=== PATIENT | male | born 1970 | race Caucasian/White ===

== ENCOUNTER 2017-03-13 13:23 | Inpatient (IN) | payer OTHER ==
[~2017-03-13] VITALS: Ht 167.6 cm; Wt 140.6 kg
[~2017-03-13 13:23] MED LIST: LISI5TAB18 PO
[2017-03-13 13:30] VITALS: BP 125/93
--- NOTE | 2017-03-13 14:40 | NUR ---
PATIENT AMBULATED TO ER BED 3.
--- NOTE | 2017-03-13 14:45 | NUR ---
PATIENT PRESENTS TO ED WITH C/O SEVERE HEADACHES IN THE MORNING AFTER A FULL NIGHT OF SLEEP X LAST 3 NIGHTS . PT STATES . DENIES N/V/D; SKIN IS PINK/WARM/DRY; AAOX4 WITH EVEN AND STEADY GAIT; LUNGS CLEAR BL; HR EVEN AND REGULAR; PT DENIES ANY FEVER, CP, PATIENT STATES PAIN OF 0/10 AT THIS TIME; VSS; PATIENT POSITIONED FOR COMFORT; HOB ELEVATED; BEDRAILS UP X2; BED DOWN. ER MD MADE AWARE OF PT STATUS.
--- NOTE | 2017-03-13 14:53 | NUR ---
PATIENT BEING EVALUATED BY DR. MATOS.
[2017-03-13 14:59] LABS: BASOPHILS # (AUTO) 0.2 K/uL (0.00-0.22); EOSINOPHILS # (AUTO) 0.2 K/uL (0-0.4); WHITE BLOOD COUNT (AUTO) 9.8 K/uL (4.8-10.8)
--- NOTE | 2017-03-13 15:00 | NUR ---
X - RAY AT BEDSIDE
[2017-03-13 15:01] LABS: BASOPHILS % (AUTO) 2.2 % (0.0-2.0); EOSINOPHILS % (AUTO) 2.1 % (0.0-4.0); HEMATOCRIT 44.8 % (36-52); HEMOGLOBIN 14.8 g/dL (12.0-18.0); LYMPHOCYTES # (AUTO) 1.4 K/uL (2.0-11.5); LYMPHOCYTES % (AUTO) 14.6 % (20.5-51.1); MEAN CORPUSCULAR HEMOGLOBIN 32 pg (27-31); MEAN CORPUSCULAR HGB CONC 33 g/dL (33-37); MEAN CORPUSCULAR VOLUME 97 fL (80-94); MONOCYTES # (AUTO) 0.8 K/uL (0.8-1.0); MONOCYTES % (AUTO) 7.8 % (1.7-9.3); NEUTROPHILS # (AUTO) 7.2 K/uL (1.8-7.7); NEUTROPHILS % (AUTO) 73.3 % (42.2-75.2); PLATELET COUNT (AUTO) 233 K/uL (140-450); RED BLOOD CELL COUNT(AUTO) 4.65 MIL/uL (4.20-6.10); RED CELL DISTRIBUTION WIDTH 13.1 % (11.6-13.7)
[2017-03-13 15:11] LABS: ANION GAP 7.8 (8-16); CALCIUM 8.3 mg/dL (8.5-10.1); CARBON DIOXIDE 32.1 mmol/L (21-32); CREATININE 0.6 mg/dL (0.7-1.3); POTASSIUM 3.9 mmol/L (3.5-5.1)
[2017-03-13 15:18] LABS: AMYLASE 27 U/L (25-115); LIPASE 124 U/L (73-393); TOTAL BILIRUBIN 0.3 mg/dL (0.0-1.0); TOTAL PROTEIN, SERUM 7.3 g/dL (6.4-8.2)
--- NOTE | 2017-03-13 15:19 | NUR ---
ULTRA SOUND AT BEDSIDE
[2017-03-13 15:26] LABS: INR 1.1 (0.8-1.2); PARTIAL THROMBOPLASTIN TIME 25.6 secs (22-35.6); PROTHROMBIN TIME 10.7 secs (10.8-13.4)
--- NOTE | 2017-03-13 15:56 | NUR ---
ambulatory to and from restroom with steady gait---pt back to [facility] resting with ou closed, snoring denies paredes at this time
[2017-03-13] MEDS ORDERED: LEVOFLOXACIN 750 MG/D5W PREMIX 150 ML IV ONE ×2 (17:00→17:15)
[2017-03-13] MEDS ORDERED: NACL 0.9% 1,000 ML IV ONE ×2 (17:00→17:15)
[2017-03-13] MEDS ORDERED: LORazepam 2 MG/ML VIAL IVP PRN (17:25)
[2017-03-13] MEDS ORDERED: ONDANSETRON 4 MG/2 ML VIAL IVP PRN (17:25)
[2017-03-13] MEDS ORDERED: FUROSEMIDE 40 MG TAB PO SCH (17:45)
--- NOTE | 2017-03-13 17:51 | NUR ---
TELE UNABLE TO TAKE REPORT AT THIS TIME
--- NOTE | 2017-03-13 17:55 | NUR ---
[facility]IV[facility] TO ROSA ELENA BRAVO
[2017-03-13 17:56] LABS: LACTIC ACID 1.1 mmol/L (0.4-2.0)
[2017-03-13 18:00] VITALS: BP 151/90
--- NOTE | 2017-03-13 18:00 | NUR ---
PATIENT ADMITTED FROM ER DX: PNA. PATIENT IS ALERT AND ORIENTED X4. AMBULATORY TO BED. HAS PRODUCTIVE COUGH. RHONCHI HEARD BILATERALLY OVER LOWER LOBES. DENIES FEELING SOB. DENIES CHEST PAIN. EDEMA NOTED BLE, PATIENT HAS HX VARICOSE VEINS. RIGHT ANKLE SWOLLEN, C/O SLIGHT DISCOMFORT. PATIENT TOLERATING PO DIET, DENIES N/V. IV ON LH #20, PATENT AND INTACT, INFUSING IV ABX BROUGHT FROM ER. PATIENT O2 SATURATION LOW, MD TO BE NOTIFIED. CALL LIGHT WITHIN REACH. SAFETY MEASURES ENSURED. ORIENTED TO HOSPITAL ENVIRONMENT.
[2017-03-13] MEDS ORDERED: LORazepam 1 MG TAB PO PRN (18:30)
--- NOTE | 2017-03-13 18:40 | NUR ---
PATIENT SEEN BY DR. DENIS AT BEDSIDE. MADE AWARE OF RESPIRATORY STATUS, NEW ORDERS FOR O2 2L NC. NEW MEDICATIONS ORDERED FOR INCREASED BP, WILL MEDICATE ORDERED. PATIENT HAS NO S/S OF ACUTE DISTRESS. RESTING IN BED.
[2017-03-13] MEDS ORDERED: FOLIC ACID 1 MG TAB PO SCH (19:00)
[2017-03-13] MEDS ORDERED: THIAMINE 100 MG TAB PO SCH (19:00)
[2017-03-13] MEDS ORDERED: LISINOPRIL 20 MG TAB PO SCH (19:00)
[2017-03-13] MEDS ORDERED: PNEUMOCOCCAL VACCINE 23 MCG/0.5 ML VIAL IMVAC SCH ×2 (19:00)
--- NOTE | 2017-03-13 19:10 | NUR ---
ENDORSED PLAN OF CARE TO NIGHT RN AT PT BEDSIDE IN STABLE CONDITION. NO S/S OF ACUTE DISTRESS NOTED.
--- NOTE | 2017-03-13 19:30 | NUR ---
RECEIVED PLAN OF CARE FROM AM NURSE. PT RESTING IN BED, AOX4, ABLE TO VERBALIZE NEEDS. PT C/O HEADACHE. SEE PAIN ASSESSMENT. WILL MEDICATE ORDERED. 2L O2 NC PLACED AT BEDSIDE, PUT BACK ON, EDUCATED ON THE IMPORTANCE TO KEEP O2 NC ON. PT STATED "I WILL TRY TO KEEP IT ON." WILL CONTINUE TO REINFORCE. BLE EDEMA NOTED. DISCUSSED AND REVIEWED PLAN OF CARE WITH PT. PT VERBALIZED UNDERSTANDING. SAFETY MEASURES ENSURED. CALL LIGHT WITHIN REACH. WILL CONTINUE TO MONITOR.
[2017-03-13 20:00] VITALS: BP 152/96
[2017-03-13] MEDS: ACETAMINOPHEN 325 MG TAB PO PRN (20:35)
--- NOTE | 2017-03-13 20:41 | NUR ---
ADMINISTERED PNA VAC WITH EDUCATION. PT C/O HEADACHE. SEE PAIN ASSESSMENT. ADMINISTERED TYLENOL WITH EDUCATION. PT VERBALIZED UNDERSTANDING, TOLERATED MEDS WELL. SAFETY MEASURES ENSURED. CALL LIGHT WITHIN REACH. WILL CONTINUE TO MONITOR.
[2017-03-14] VITALS: BP 144/102
[2017-03-14] MEDS: ACETAMINOPHEN 325 MG TAB PO PRN ×2 (00:41→14:36)
[2017-03-14 01:50] VITALS: BP 164/105
[2017-03-14] MEDS ORDERED: LISINOPRIL 20 MG TAB PO SCH ×2 (01:50→09:00)
--- NOTE | 2017-03-14 01:50 | NUR ---
PAGED DR COLEY, CIVIL STRUCTURAL ENGINEER FOR DR DENIS, MADE MD AWARE OF PT'S DIAGNOSIS OF PNA, SUBSTANCE ABUSE AND PT'S C/O PERSISTENT, BREAKTHROUGH HEADACHE AND PT'S HIGH BLOOD PRESSURE RANGING FROM 152/96 AND NOW AT 164/105. DISCUSSED THAT THERE IS NO UDS AND THE PT DID NOT HAVE BP MED ORDERED FOR THE NIGHT BUT DOES HAVE LISINOPRIL 20MG PO SCHEDULED IN THE MORNING. MD ORDERED UDS, NORCO 5/325 Q4 PRN FOR PAIN, LISINOPRIL 20MG PO NOW AND THAT IT IS OK TO GIVE SCHEDULED DOSE OF LISINIPRIL IN THE MORNING WELL. ORDERS PENDING, WILL CARRY OUT.
[2017-03-14] MEDS: HYDROcodone/APAP 5/325 MG 1 TAB TAB PO PRN ×3 (02:13→20:17)
--- NOTE | 2017-03-14 02:18 | NUR ---
ADMINISTERED LISINOPRIL 20MG PO NOW ORDERED AND NORCO 5/325 FOR BREAKTHROUGH HEADACHE, SEE PAIN ASSESSMENT. PT VERBALIZED UNDERSTANDING, TOLERATED MED WELL. PT INSTRUCTED TO COLLECT URINE SAMPLE WHENEVER POSSIBLE, PT VERBALIZED UNDERSTANDING. SAFETY MEASURES ENSURED. CALL LIGHT WITHIN REACH.
--- NOTE | 2017-03-14 04:15 | NUR ---
PT SLEEPING. CONDITION STABLE. ALL NEEDS MET. SAFETY MEASURES ENSURED. CALL LIGHT WITHIN REACH. WILL CONTINUE TO MONITOR.
[2017-03-14 05:12] LABS: AMPHETAMINE, URINE NEGATIVE ng/ml (NEG <=1000); BARBITURATE, URINE NEGATIVE ng/ml (NEG <=200); BENZODIAZEPINE, URINE NEGATIVE ng/mL (NEG <=200); CANNABINOID, URINE NEGATIVE ng/mL (NEG <=50); COCAINE, URINE NEGATIVE ng/mL (NEG <=300); OPIATE, URINE NEGATIVE ng/mL (NEG <=2000); PHENCYCLIDINE SCREEN,URINE NEGATIVE ng/mL (NEG <=25)
--- NOTE | 2017-03-14 07:07 | NUR ---
PATIENT HAS BEEN SCREENED AND CATEGORIZED HIGH NUTRITION RISK. PATIENT WILL BE SEEN WITHIN 1-2 DAYS OF ADMISSION. 03/14/17-03/15/17 RENNY BAIRD MS, RDN
--- NOTE | 2017-03-14 07:34 | NUR ---
CONDITION STABLE. ENDORSED PLAN OF CARE TO AM NURSE.
--- NOTE | 2017-03-14 07:34 | NUR ---
RECIVED REPORT FROM NIGHT NURSE, PT IS AAOX4, IV TO LEFT HAND 20G SALINE LOCK, SKIN INTACT, BLE EDEMA, INITIAL ASSESSMENT COMPLETED, REVIEWED PLAN OF CARE WITH PT, PT VERBALIZED UNDERSTANDING, ALL SAFETY PRECAUTIONS MET. CALL LIGHT WITHIN REACH. WILL CONTINUE TO MONITOR.
[2017-03-14 08:00] VITALS: BP 151/99
[2017-03-14] MEDS: ENOXAPARIN 40 MG/0.4 ML SYR SUBQ SCH (08:24)
[2017-03-14] MEDS: FOLIC ACID 1 MG TAB PO SCH (08:24)
[2017-03-14] MEDS: THIAMINE 100 MG TAB PO SCH (08:24)
[2017-03-14] MEDS: LISINOPRIL 20 MG TAB PO SCH (08:24)
--- NOTE | 2017-03-14 08:28 | NUR ---
DUE MEDICATIONS GIVEN. PT TOLERATED WELL. ALL NEEDS MET. WILL CONTINUE TO MONITOR.
--- NOTE | 2017-03-14 10:20 | NUR ---
03/14/17 RD INITIAL ASSESSMENT COMPLETED PLEASE REFER TO NUTRITION ASSESSMENT UNDER CARE ACTIVITY FOR ESTIMATED NUTRITIONAL NEEDS. RD RECOMMENDATIONS: 1. CONTINUE ON CURRENT DIET. 2. RD WILL F/U 5-7 DAYS; LOW RISK. RENNY BAIRD MS, RDN
--- NOTE | 2017-03-14 11:25 | NUR ---
CHECKED IN ON PT, PT CURRENTLY SLEEPING. NO S/S OF DISTRESS NOTED. WILL CONTINUE TO MONITOR.
[2017-03-14] MEDS ORDERED: cloNIDine 0.1 MG TAB PO SCH (14:33)
--- NOTE | 2017-03-14 15:28 | NUR ---
PT CURRENTLY TAKING A SHOWER
[2017-03-14 16:06] VITALS: BP 130/73
--- NOTE | 2017-03-14 18:38 | NUR ---
PT ACCIDENTLY PULLED OUT IV, NEW IV STARTED RIGHT HAND 20G SALINE LOCK, PT TOLERATED WELL. ALL NEEDS MET. WILL CONTINUE TO MONITOR.
--- NOTE | 2017-03-14 19:10 | NUR ---
ENDORSED PLAN OF CARE, PT IN STABLE CONDITION.
--- NOTE | 2017-03-14 19:15 | NUR ---
RECEIVED PT FROM HOMAR BRAVO PT IS AAOX4 AMBULATORY BLE EDEMA +2 HL ON RT HAND PATENT ON 02 2 LTS VIA NC INITIAL ASSESSMENT DONE
[2017-03-14] MEDS: cloNIDine 0.1 MG TAB PO SCH (20:16)
--- NOTE | 2017-03-14 21:18 | NUR ---
AFTER PAIN MEDIC GIVEN PT SLEEPING WELL ON 10 09 LTS VIA NC
[2017-03-15] VITALS: BP 156/100
--- NOTE | 2017-03-15 | NUR ---
PT SLEEPING ON 02 2 LTS VIA NC 96%
[2017-03-15] MEDS: HYDROcodone/APAP 5/325 MG 1 TAB TAB PO PRN ×2 (01:38→08:28)
--- NOTE | 2017-03-15 01:57 | NUR ---
RESTING ON BED NOT SOB NOTED ON 10 09 LTS VIA NC
--- NOTE | 2017-03-15 04:00 | NUR ---
SPONGE BATH GIVEN LINEN CHANGED ON 2 LTS VIA NC
--- NOTE | 2017-03-15 06:30 | NUR ---
PT RESTING ON BED NOT SOB NOTED HL ON RT HAND PATENT
--- NOTE | 2017-03-15 07:15 | NUR ---
RECEIVED REPORT FROM NIGHT NURSE, PT IS AAOX4, IV TO RIGHT HAND 20G SALINE LOCK, SKIN INTACT, BLE EDEMA, ON O2 2L VIA NC. INITIAL ASSESSMENT COMPLETED, REVIEWED PLAN OF CARE WITH PT, PT VERBALIZED UNDERSTANDING, ALL SAFETY PRECAUTIONS MET. CALL LIGHT WITHIN REACH. WILL CONTINUE TO MONITOR.
[2017-03-15 08:00] VITALS: BP 166/119
[2017-03-15] MEDS: LISINOPRIL 20 MG TAB PO SCH (08:27)
[2017-03-15] MEDS: FOLIC ACID 1 MG TAB PO SCH (08:27)
[2017-03-15] MEDS: THIAMINE 100 MG TAB PO SCH (08:27)
[2017-03-15] MEDS: ENOXAPARIN 40 MG/0.4 ML SYR SUBQ SCH (08:35)
--- NOTE | 2017-03-15 08:35 | NUR ---
DUE MEDICATIONS GIVEN, CLONIDINE NOT GIVEN BP 147/89 HR 95, WILL CONTINUE TO MONITOR.
[2017-03-15] MEDS: cloNIDine 0.1 MG TAB PO SCH ×2 (09:00→20:05)
[2017-03-15] MEDS ORDERED: cloNIDine 0.1 MG TAB PO SCH (10:47)
[2017-03-15] MEDS ORDERED: traMADol 50 MG TAB PO SCH (10:48)
--- NOTE | 2017-03-15 10:54 | NUR ---
RE ASSESSED BP AT 167/89 HR OF 91, OBTAIN NEW ORDERS FROM MD. WILL MEDICATE PER MD ORDERS AND REASSESS BP. ALL SAFETY NEEDS MET. WILL CONTINUE TO MONITOR.
--- NOTE | 2017-03-15 13:45 | NUR ---
PT CURRENTLY RESTING IN BED, O2 VIA NC ON, NO S/S OF RESPIRATORY DISTRESS NOTED. ALL NEEDS MET. WILL CONTINUE TO MONITOR.
--- NOTE | 2017-03-15 15:55 | NUR ---
CHECKED IN PT CURRENTLY SLEEPING.CALL LIGHT WITH REACH. WILL CONTINUE TO MONITOR.
[2017-03-15 16:00] VITALS: BP 141/81
--- NOTE | 2017-03-15 17:15 | NUR ---
PT CURRENTLY SLEEPING. NO S/S OF RESPIRATORY DISTRESS NOTED. WILL CONTINUE TO MONITOR.
--- NOTE | 2017-03-15 19:15 | NUR ---
ENDORSED PLAN OF CARE TO NIGHT NURSE, PT IN STABLE CONDITION.
--- NOTE | 2017-03-15 19:18 | NUR ---
RECEIVED REPORT, ASSUMED CARE. AAOX4. NO S/S OF RESPIRATORY DISTRESS AT THIS TIME. SL TO RT HAND GAUGE 20, INTACT AND PATENT. NO S/S OF INFILTRATION. PT C/O HEADACHE 06/16, REQUESTING FOR PAIN RELIEVER. WILL MEDICATE PATIENT. DISCUSSED PLAN OF CARE, PT VERBALIZED UNDERSTANDING. CALL LIGHT WITHIN EASY REACH. WILL CONTINUE TO MONITOR.
[2017-03-15 20:00] VITALS: BP 161/86
--- NOTE | 2017-03-15 20:05 | NUR ---
ALL DUE MEDS ADMINISTERED.CLONIDINE 0.2MG GIVEN FOR BP 161/86 HR 85. PT C/O HEADACHE WELL. MEDICATED WITH TRAMADOL ORDERED. WILL REASSESS PAIN LEVEL AND BLOOD PRESSURE.
[2017-03-15] MEDS: traMADol 50 MG TAB PO SCH (20:06)
--- NOTE | 2017-03-15 21:35 | NUR ---
PT SLEEPING AT THIS TIME WITH NO S/S OF DISCOMFORT OR PAIN. BP 134/88 HR 89. NO S/S OF RESPIRATORY DISTRESS.
[2017-03-16] VITALS: BP 161/91
--- NOTE | 2017-03-16 00:40 | NUR ---
PT SOUND ASLEEP AT THIS TIME. NO S/S OF RESPIRATORY DISTRESS. WILL CONTINUE TO MONITOR.
[2017-03-16] MEDS: HYDROcodone/APAP 5/325 MG 1 TAB TAB PO PRN (02:28)
--- NOTE | 2017-03-16 07:22 | NUR ---
ASSUMED CONTINUITY OF CARE. NO SIGNS AND SYMPTOMS OF ACUTE DISTRESS NOTED. INITIAL ASSESSMENT DONE. KEEP COMFORTABLE ON BED. EXPLAINED DIAGNOSIS, PLAN OF CARE, PAIN MANAGEMENT TEACHING, USE OF CALL LIGHT/BED/TV/BATHROOM. VERBALIZED UNDERSTANDING. CALL LIGHT WITHIN REACH.
--- NOTE | 2017-03-16 07:23 | NUR ---
Patient's Plan of Care was discussed and reviewed with A P SUPERVISOR: LUC Medel
--- NOTE | 2017-03-16 07:29 | NUR ---
PT STILL SLEEPING BUT AROUSABLE. NO S/S OF RESPIRATORY DISTRESS. PT IN STABLE CONDITION. ENDORSED TO NEXT SHIFT FOR CONTINUITY OF CARE.
[2017-03-16 08:00] VITALS: BP 154/101
[2017-03-16] MEDS: FOLIC ACID 1 MG TAB PO SCH (08:21)
[2017-03-16] MEDS: THIAMINE 100 MG TAB PO SCH (08:21)
[2017-03-16] MEDS: cloNIDine 0.1 MG TAB PO SCH (08:21)
[2017-03-16] MEDS: traMADol 50 MG TAB PO SCH (08:22)
[2017-03-16] MEDS: ENOXAPARIN 40 MG/0.4 ML SYR SUBQ SCH (08:25)
[2017-03-16] MEDS ORDERED: LISINOPRIL 20 MG TAB PO SCH ×2 (09:00→21:00)
--- NOTE | 2017-03-16 09:40 | NUR ---
DR. DENIS CAME, INFORMED OF PT. BP AT 0800 154/101 AND SCHEDULED MEDS WAS GIVEN.
[2017-03-16 09:51] VITALS: BP 110/55
[2017-03-16] MEDS ORDERED: FURO-570 PO (09:56)
[2017-03-16] MEDS ORDERED: LISI-420 PO (09:56)
[2017-03-16] MEDS ORDERED: TRAM50TA3 PO (09:56)
[2017-03-16] MEDS ORDERED: CLON0.1T42 PO (09:56)
[2017-03-16] MEDS ORDERED: FUROSEMIDE 20 MG/2 ML VIAL IVP SCH (10:01)
[2017-03-16] MEDS ORDERED: hydrALAZINE 25 MG TAB PO SCH (10:02)
--- NOTE | 2017-03-16 10:12 | NUR ---
DR. DENIS CALLED BACK, INFORMED OF PT. BP AT 0951 WAS 110/55, HR 85. GOT TELEPHONE ORDER FROM DR. DENIS TO D/C LASIX 40 MG IVP ONCE AND HYDRALAZINE 25 MG PO ONCE, AND D/C HOME PT. WITH PRESCRIPTION ON CHART, READ BACK AND VERIFIED. INFORMED CHARGE NURSE.
--- NOTE | 2017-03-16 10:30 | NUR ---
EXPLAINED MD D/C ORDER, DIAGNOSIS, D/C INSTRUCTIONS AND TEACHING, MD PRESCRIPTION LIST EDUCATION, MD FOLLOW-UP, DISEASE MANAGEMENT, PAIN MANAGEMENT TEACHING. PT. VERBALIZED UNDERSTANDING. PT. STATES THAT HE (PT.) WAS NOT HOMELESS AND HE WILL GO TO [facility]ANDMOTHER HOUSE OR GO STRAIGHT TO BUS STATION TO GO TO [place].
--- NOTE | 2017-03-16 10:31 | NUR ---
CALLED PT. AUNTIE ЕЛЕНА GARCIA AT REGARDING PT. DISCHARGE. LEFT MESSAGE AND CALL BACK NUMBER. INFORMED CHARGE NURSE KING ACOSTA.
--- NOTE | 2017-03-16 11:36 | NUR ---
CM NOTE INITIAL REVIEW FAXED TO [facility] [phone] PH INEZ [phone] FEBRUARY [phone]
--- NOTE | 2017-03-16 11:41 | NUR ---
CALLED PT. AUNTIE ЕЛЕНА GARCIA AT FOR SECOND TIME REGARDING PT. DISCHARGE. LEFT MESSAGE AND CALL BACK NUMBER. INFORMED CHARGE NURSE KING ACOSTA.
[2017-03-16 11:44] VITALS: BP 143/97
--- NOTE | 2017-03-16 12:10 | NUR ---
D/C VIA WHEELCHAIR. AWAKE, ALERT, AND ORIENTED X4. SPEECH CLEAR. NO C/O PAIN. NO SOB, NOTED. IN STABLE CONDITION. INFORMED CHARGE NURSE KING ACOSTA.
--- NOTE | 2017-03-16 12:46 | NUR ---
SS NOTE: I ATTEMPTED TO SPEAK WITH PT BEDSIDE TO PROVIDE HIM WITH ALCOHOL AND SUBSTANCE ABUSE RESOURCES BUT PT WAS ALREADY DISCHARGED.
[2017-03-17] MEDS ORDERED: hydrALAZINE 25 MG TAB PO SCH (09:00)
== END 2017-03-16 12:10 | disposition home or self-care (01) | DRG 199 ==
LOC: MED 13:23 → MTU 17:27
PROVIDERS: ADMIT Hospitalist; ATTEND Hospitalist
DX: I10 Essential (primary) hypertension (principal); E66.2 Morbid (severe) obesity with alveolar hypoventilation; R53.1 Weakness; F10.239 Alcohol dependence with withdrawal, unspecified; R53.81 Other malaise; F19.10 Other psychoactive substance abuse, uncomplicated; R62.7 Adult failure to thrive; G89.29 Other chronic pain; R60.0 Localized edema; F17.210 Nicotine dependence, cigarettes, uncomplicated; E87.70 Fluid overload, unspecified; Z68.43 Body mass index [BMI] 50.0-59.9, adult; Z59.0 Homelessness
CPT/HCPCS: 36415; 71010; 73610; 80053; 80305; 82150; 83605; 83690; 83880; 84484; 85025; 85379; 85610; 85730; 87040; 87081; 90732; 93005; 93971; 99285; J1650; J1956; J7030; Q0092